=== PATIENT | female | born 1945 | race American Indian/Alaskan Native ===

== ENCOUNTER 2018-06-07 20:34 | Emergency (ER) | payer MEDICARE ==
[~2018-06-07] VITALS: Ht 165.1 cm; Wt 77.1 kg
[2018-06-07] MEDS ORDERED: LASIX20 MG PO (21:31)
[2018-06-07] MEDS ORDERED: LISINOPRIL20 MG PO (21:32)
[2018-06-07] MEDS ORDERED: AMBIEN5 MG PO (21:32)
[2018-06-07] MEDS ORDERED: COUMADIN2 MG PO (21:34)
[2018-06-07] MEDS ORDERED: NORCO 5-325 TA1 EACH PO (22:15)
== END 2018-06-07 22:38 | disposition home or self-care (01) ==
LOC: ED 20:34
DX: S42.017A Nondisplaced fracture of sternal end of right clavicle, initial encounter for closed fracture (principal); R60.0 Localized edema; E11.9 Type 2 diabetes mellitus without complications; I10 Essential (primary) hypertension; Z79.01 Long term (current) use of anticoagulants; Z79.899 Other long term (current) drug therapy; W01.0XXA Fall on same level from slipping, tripping and stumbling without subsequent striking against object, initial encounter; Y92.59 Other trade areas as the place of occurrence of the external cause
CPT/HCPCS: 73030; 99283-25